=== PATIENT | male | born 2000 | race Hispanic/Latino ===

== ENCOUNTER 2020-09-20 00:52 | Emergency (ER) | payer OTHER, SELFPAY ==
[2020-09-20] MEDS ORDERED: Proparacaine 0.5% Opth 15 ML BOT ONE (01:21)
[2020-09-20] MEDS ORDERED: Fluorescein Opthalmic Strip ONE (01:21)
== END 2020-09-20 01:42 | disposition home or self-care (01) ==
LOC: ERS 00:52
DX: S05.02XA Injury of conjunctiva and corneal abrasion without foreign body, left eye, initial encounter (principal); J45.909 Unspecified asthma, uncomplicated; W45.8XXA Other foreign body or object entering through skin, initial encounter
CPT/HCPCS: 99282

== ENCOUNTER 2023-06-20 14:12 | Emergency (ER) | payer SELFPAY | END 2023-06-20 15:18 | disposition home or self-care (01) | LOC: ERS 14:12 | DX: L23.9 Allergic contact dermatitis, unspecified cause (principal) | CPT/HCPCS: 99282 ==